=== PATIENT | male | born 1990 | race Caucasian/White ===

== ENCOUNTER 2016-12-10 06:30 | Outpatient (CLI) | payer BC ==
[2016-12-10 09:04] LABS: Anion Gap 16 mmol/L (10-20); BUN (Urea Nitrogen) 22 mg/dL (8.9-20.6); BUN/Creatinine Ratio 15.71; Calc. Creatinine Clearance 0 mL/min (70-130); Calcium 9.6 mg/dL (7.8-10.44); Carbon Dioxide 20 mmol/L (22-29); Chloride 109 mmol/L (98-107); Estimated GFR-MDRD 61
[2016-12-10 09:06] LABS: Hematocrit 43.2 % (42.0-52.0); Mean Platelet Volume 5.8 fL (7.4-10.4); Red Blood Cell (RBC) Count 4.59 mill/uL (4.70-6.10); White Blood Cell (WBC) Count 7.1 thou/uL (4.8-10.8)
[2016-12-10 09:45] LABS: Bilirubin Negative (Negative); Blood, Urine Trace (Negative); Glucose, Urine (Dipstick) Negative (Negative); Ketone, Urine Negative (Negative); Nitrite Negative (Negative); Protein, Urine (Dipstick) Negative (Neg-Trace); Urobilinogen 0.2 mg/dL (0.2-1.0)
[2016-12-10 17:51] LABS: Phosphorus 3.3 mg/dL (2.3-4.7)
== END 2016-12-10 06:31 | disposition home or self-care (01) ==
LOC: BURLAB 06:30
PROVIDERS: ATTEND Internal Medicine Nephrology
DX: I12.9 Hypertensive chronic kidney disease with stage 1 through stage 4 chronic kidney disease, or unspecified chronic kidney disease (principal); N18.4 Chronic kidney disease, stage 4 (severe); R80.9 Proteinuria, unspecified; I02.0 Rheumatic chorea with heart involvement; R56.9 Unspecified convulsions; I27.0 Primary pulmonary hypertension; E78.5 Hyperlipidemia, unspecified; Z94.0 Kidney transplant status
CPT/HCPCS: 36415; 80069; 80197; 81003; 82570; 84156; 84550; 85027

== ENCOUNTER 2016-12-28 06:42 | Outpatient (CLI) | payer BC ==
[2016-12-28 07:10] LABS: Bilirubin Negative (Negative); Blood, Urine Trace (Negative); Glucose, Urine (Dipstick) Negative (Negative); Ketone, Urine Negative (Negative); Nitrite Negative (Negative); Protein, Urine (Dipstick) Negative (Neg-Trace); Urobilinogen 0.2 mg/dL (0.2-1.0)
[2016-12-28 07:19] LABS: Hematocrit 42.2 % (42.0-52.0); Mean Platelet Volume 6.1 fL (7.4-10.4); Red Blood Cell (RBC) Count 4.59 mill/uL (4.70-6.10); White Blood Cell (WBC) Count 6.6 thou/uL (4.8-10.8)
[2016-12-28 08:07] LABS: Anion Gap 14 mmol/L (10-20); BUN (Urea Nitrogen) 20 mg/dL (8.9-20.6); BUN/Creatinine Ratio 15.15; Calc. Creatinine Clearance 0 mL/min (70-130); Calcium 9.2 mg/dL (7.8-10.44); Carbon Dioxide 21 mmol/L (22-29); Chloride 110 mmol/L (98-107); Estimated GFR-MDRD 66
[2016-12-28 19:07] LABS: Phosphorus 3.3 mg/dL (2.3-4.7)
== END 2016-12-28 06:43 | disposition home or self-care (01) ==
LOC: BURLAB 06:42
PROVIDERS: ATTEND Internal Medicine Nephrology
DX: E78.5 Hyperlipidemia, unspecified (principal); I27.0 Primary pulmonary hypertension; I02.0 Rheumatic chorea with heart involvement; R80.9 Proteinuria, unspecified; R56.9 Unspecified convulsions; Z94.0 Kidney transplant status
CPT/HCPCS: 36415; 80069; 80197; 81003; 84550; 85027

== ENCOUNTER 2017-02-14 21:32 | Emergency (ER) | payer BC ==
[2017-02-14] MEDS ORDERED: Adacel (T-DAP) 0.5 ML VIAL ONE (21:41)
[2017-02-14] MEDS ORDERED: Cephalexin 250 MG CAP ONE (22:32)
== END 2017-02-14 22:40 | disposition home or self-care (01) ==
LOC: BURERS 21:32
DX: S61.211A Laceration without foreign body of left index finger without damage to nail, initial encounter (principal); S61.217A Laceration without foreign body of left little finger without damage to nail, initial encounter; S61.213A Laceration without foreign body of left middle finger without damage to nail, initial encounter; S61.215A Laceration without foreign body of left ring finger without damage to nail, initial encounter; I10 Essential (primary) hypertension; Z94.0 Kidney transplant status; Z79.899 Other long term (current) drug therapy; W19.XXXA Unspecified fall, initial encounter
CPT/HCPCS: 12002; 90471; 90715

== ENCOUNTER 2017-02-28 06:40 | Outpatient (CLI) | payer BC ==
[2017-02-28 07:27] LABS: ALT (SGPT) 18 U/L (0-55); AST (SGOT) 19 U/L (5-34); Albumin 4.4 g/dL (3.5-5.0); Alkaline Phosphatase 89 U/L (40-150); Anion Gap 13 mmol/L (10-20); BUN (Urea Nitrogen) 23 mg/dL (8.9-20.6); BUN/Creatinine Ratio 17.69; Bilirubin, Direct 0.2 mg/dL (0.1-0.3); Bilirubin, Total 0.4 mg/dL (0.2-1.2); Calc. Creatinine Clearance 0 mL/min (70-130); Calcium 9.3 mg/dL (7.8-10.44); Carbon Dioxide 22 mmol/L (22-29); Chloride 109 mmol/L (98-107); Estimated GFR-MDRD 67; Glucose 107 mg/dL (70-105); Potassium 3.8 mmol/L (3.5-5.1); Protein, Total 7.1 g/dL (6.0-8.3); Sodium 140 mmol/L (136-145)
[2017-02-28 08:15] LABS: #Basophils 0.1 thou/uL (0.0-0.2); #Eosinphils 0.2 thou/uL (0.0-0.7); #Lymphocytes 2.5 thou/uL (1.20-3.40); #Monocytes 0.9 thou/uL (0.11-0.59); #Neutrophils 3.6 thou/uL (1.40-6.50); %Basophils 1.2 % (0.0-1.0); %Eosinophils 2.5 % (0.0-10.0); %Lymphocytes 35.6 % (21.0-51.0); %Monocytes 12.6 % (0.0-10.0); %Neutrophils 48.1 % (42.0-75.0); Hemoglobin 15.8 g/dL (14.0-18.0); Mean Corpuscular HGB CONC 37.2 g/dL (32.0-36.0); Mean Corpuscular Hemoglobin 34.4 pg (27.0-31.0); Mean Corpuscular Volume 92.4 fl (80.0-94.0); Mean Platelet Volume 5.9 fL (7.4-10.4); PLT Morphology Comment Appears Adequate; Platelet Count 193 thou/uL (130-400); RBC Distribution Width 11.5 % (11.5-14.5); RBC Morphology Normal; Red Blood Cell (RBC) Count 4.53 mill/uL (4.70-6.10); White Blood Cell (WBC) Count 7.1 thou/uL (4.8-10.8)
[2017-02-28 08:18] LABS: MDiff Complete? YES; Manual Diff?? NO
[2017-02-28 08:21] LABS: Bilirubin Negative (Negative); Blood, Urine Trace (Negative); Clarity Clear (Clear); Glucose, Urine (Dipstick) Negative (Negative); Leukocyte Negative (Negative); Nitrite Negative (Negative); Protein, Urine (Dipstick) Negative (Neg-Trace); Specific Gravity, Urine 1.015 (1.005-1.030); Urobilinogen 0.2 mg/dL (0.2-1.0); pH, Urine 5.5 (5.0-9.0)
[2017-02-28 08:34] LABS: RBC/HPF 0-3 HPF (0-3); WBC/HPF 0-3 HPF (0-3)
[2017-02-28 08:35] LABS: Squamous Epithelial 0-3 HPF (0-3)
[2017-02-28 17:28] LABS: Phosphorus 3.5 mg/dL (2.3-4.7)
== END 2017-02-28 06:41 | disposition home or self-care (01) ==
LOC: BURLAB 06:40
PROVIDERS: ATTEND Family Medicine
DX: I12.9 Hypertensive chronic kidney disease with stage 1 through stage 4 chronic kidney disease, or unspecified chronic kidney disease (principal); N18.4 Chronic kidney disease, stage 4 (severe); I02.0 Rheumatic chorea with heart involvement; E78.5 Hyperlipidemia, unspecified; R80.9 Proteinuria, unspecified; I27.0 Primary pulmonary hypertension; Z94.0 Kidney transplant status
CPT/HCPCS: 36415; 80069; 80076; 80197; 81003; 81015; 85025

== ENCOUNTER 2017-03-26 07:52 | Outpatient (CLI) | payer BC ==
[2017-03-26 08:51] LABS: ALT (SGPT) 15 U/L (8-55); AST (SGOT) 19 U/L (5-34); Albumin 4.6 g/dL (3.5-5.0); Alkaline Phosphatase 73 U/L (40-150); Anion Gap 15 mmol/L (10-20); BUN (Urea Nitrogen) 22 mg/dL (8.9-20.6); Bilirubin, Total 0.8 mg/dL (0.2-1.2); Calc. Creatinine Clearance 0 mL/min (70-130); Calcium 9.5 mg/dL (7.8-10.44); Carbon Dioxide 21 mmol/L (22-29); Chloride 109 mmol/L (98-107); Estimated GFR-MDRD 66; Globulin 2.4 g/dL (2.4-3.5); Glucose 89 mg/dL (70-105); Sodium 141 mmol/L (136-145); Uric Acid 7.6 mg/dL (3.5-7.2)
[2017-03-26 09:00] LABS: #Basophils 0.1 thou/uL (0.0-0.2); #Eosinphils 0.1 thou/uL (0.0-0.7); #Monocytes 0.9 thou/uL (0.11-0.59); #Neutrophils 3.6 thou/uL (1.40-6.50); %Basophils 1.3 % (0.0-1.0); %Eosinophils 1.4 % (0.0-10.0); %Lymphocytes 30.2 % (21.0-51.0); %Monocytes 12.7 % (0.0-10.0); %Neutrophils 54.4 % (42.0-75.0); Hemoglobin 15.8 g/dL (14.0-18.0); Mean Corpuscular HGB CONC 36.6 g/dL (32.0-36.0); Mean Corpuscular Hemoglobin 32.4 pg (27.0-31.0); Mean Corpuscular Volume 88.5 fl (80.0-94.0); Mean Platelet Volume 5.9 fL (7.4-10.4); Platelet Count 187 thou/uL (130-400); RBC Distribution Width 11.8 % (11.5-14.5); Red Blood Cell (RBC) Count 4.86 mill/uL (4.70-6.10); White Blood Cell (WBC) Count 6.7 thou/uL (4.8-10.8)
[2017-03-26 09:36] LABS: Bilirubin Negative (Negative); Blood, Urine Trace (Negative); Clarity Clear (Clear); Glucose, Urine (Dipstick) Negative (Negative); Leukocyte Negative (Negative); Nitrite Negative (Negative); Protein, Urine (Dipstick) Negative (Neg-Trace); Specific Gravity, Urine 1.015 (1.005-1.030); Urobilinogen 0.2 mg/dL (0.2-1.0)
[2017-03-26 09:44] LABS: RBC/HPF 0-3 HPF (0-3)
[2017-03-26 09:45] LABS: Bacteria/HPF None Seen HPF (None Seen); Squamous Epithelial 0-3 HPF (0-3); WBC/HPF None Seen HPF (0-3)
[2017-03-26 09:56] LABS: Microalbumin Urine Less than 1.0 mg/dL (0.5-50.0); Microalbumin/Creat Ratio 17.5 mg/g (Less than 30)
== END 2017-03-26 07:53 | disposition home or self-care (01) ==
LOC: BURLAB 07:52
PROVIDERS: ATTEND Internal Medicine Nephrology
DX: I12.9 Hypertensive chronic kidney disease with stage 1 through stage 4 chronic kidney disease, or unspecified chronic kidney disease (principal); N18.9 Chronic kidney disease, unspecified; D63.1 Anemia in chronic kidney disease; N25.0 Renal osteodystrophy; Z94.0 Kidney transplant status
CPT/HCPCS: 36415; 80053; 80197; 81001; 82043; 83735; 83970; 84100; 84550; 85025; 87799

== ENCOUNTER 2017-04-24 06:14 | Outpatient (CLI) | payer BC | END 2017-04-24 06:15 | disposition home or self-care (01) | LOC: BURLAB 06:14 | PROVIDERS: ATTEND Internal Medicine Nephrology | DX: N25.0 Renal osteodystrophy (principal); N18.9 Chronic kidney disease, unspecified; D63.1 Anemia in chronic kidney disease; I10 Essential (primary) hypertension; Z94.0 Kidney transplant status | CPT/HCPCS: 36415; 80197; 87799 ==

== ENCOUNTER 2017-05-24 06:41 | Outpatient (CLI) | payer BC ==
[2017-05-24 08:01] LABS: Hemoglobin 16.3 g/dL (14.0-18.0); Mean Corpuscular HGB CONC 35.6 g/dL (32.0-36.0); Mean Corpuscular Volume 87.2 fl (80.0-94.0); Mean Platelet Volume 6.1 fL (7.4-10.4); Platelet Count 218 thou/uL (130-400); RBC Distribution Width 12.3 % (11.5-14.5); Red Blood Cell (RBC) Count 5.27 mill/uL (4.70-6.10)
[2017-05-24 08:20] LABS: Albumin 4.5 g/dL (3.5-5.0); Anion Gap 17 mmol/L (10-20); BUN (Urea Nitrogen) 26 mg/dL (8.9-20.6); BUN/Creatinine Ratio 19.26; Calc. Creatinine Clearance 0 mL/min (70-130); Calcium 9.6 mg/dL (7.8-10.44); Carbon Dioxide 22 mmol/L (22-29); Chloride 107 mmol/L (98-107); Estimated GFR-MDRD 64; Glucose 85 mg/dL (70-105); Potassium 4.3 mmol/L (3.5-5.1); Sodium 142 mmol/L (136-145); Uric Acid 7.3 mg/dL (3.5-7.2)
[2017-05-24 17:40] LABS: Phosphorus 3.7 mg/dL (2.3-4.7)
== END 2017-05-24 06:42 | disposition home or self-care (01) ==
LOC: BURLAB 06:41
PROVIDERS: ATTEND Internal Medicine Nephrology
DX: E78.5 Hyperlipidemia, unspecified (principal); I12.9 Hypertensive chronic kidney disease with stage 1 through stage 4 chronic kidney disease, or unspecified chronic kidney disease; N18.4 Chronic kidney disease, stage 4 (severe); I02.0 Rheumatic chorea with heart involvement; I27.0 Primary pulmonary hypertension; R80.9 Proteinuria, unspecified; R56.9 Unspecified convulsions; L70.9 Acne, unspecified; Z94.0 Kidney transplant status
CPT/HCPCS: 36415; 80069; 80197; 84550; 85027

== ENCOUNTER 2017-07-30 06:25 | Outpatient (CLI) | payer BC ==
[2017-07-30 07:08] LABS: Hemoglobin 15.3 g/dL (14.0-18.0); Mean Corpuscular HGB CONC 36.2 g/dL (32.0-36.0); Mean Corpuscular Hemoglobin 31.7 pg (27.0-31.0); Mean Corpuscular Volume 87.7 fl (80.0-94.0); Mean Platelet Volume 5.8 fL (7.4-10.4); Platelet Count 209 thou/uL (130-400); RBC Distribution Width 12.1 % (11.5-14.5); Red Blood Cell (RBC) Count 4.82 mill/uL (4.70-6.10); White Blood Cell (WBC) Count 6.6 thou/uL (4.8-10.8)
[2017-07-30 07:10] LABS: Bilirubin Negative (Negative); Blood, Urine Trace (Negative); Clarity Clear (Clear); Glucose, Urine (Dipstick) Negative (Negative); Leukocyte Negative (Negative); Nitrite Negative (Negative); Protein, Urine (Dipstick) Negative (Neg-Trace); Urobilinogen 0.2 mg/dL (0.2-1.0)
[2017-07-30 07:46] LABS: ALT (SGPT) 16 U/L (8-55); AST (SGOT) 17 U/L (5-34); Albumin 4.5 g/dL (3.5-5.0); Alkaline Phosphatase 90 U/L (40-150); Anion Gap 16 mmol/L (10-20); BUN (Urea Nitrogen) 18 mg/dL (8.9-20.6); BUN/Creatinine Ratio 14.29; Bilirubin, Direct 0.2 mg/dL (0.1-0.3); Bilirubin, Total 0.4 mg/dL (0.2-1.2); Calc. Creatinine Clearance 0 mL/min (70-130); Calcium 9.7 mg/dL (7.8-10.44); Carbon Dioxide 22 mmol/L (22-29); Cardiac Risk 3.6 (Less than 4.5); Chloride 109 mmol/L (98-107); Cholesterol 184 mg/dl (< 200 Desired); Estimated GFR-MDRD 69; Glucose 101 mg/dL (70-105); HDL Cholesterol 51 mg/dL (>60 Neg Risk); LDL Cholesterol, Calculated 119 mg/dL; Potassium 3.9 mmol/L (3.5-5.1); Protein, Total 7.3 g/dL (6.0-8.3); Sodium 143 mmol/L (136-145); Triglycerides 72 mg/dL (Less than 150); Uric Acid 6.7 mg/dL (3.5-7.2)
[2017-07-30 17:29] LABS: Phosphorus 3.8 mg/dL (2.3-4.7)
[2017-07-30 17:43] LABS: Creatinine, Urine 43.07 mg/dL (63-166); Protein, Urine Random Quant Less than 10 mg/dL
[2017-08-02 16:13] LABS: Tacrolimus 7.6 ng/mL (2.0-20.0)
== END 2017-07-30 06:26 | disposition home or self-care (01) ==
LOC: BURLAB 06:25
PROVIDERS: ATTEND Internal Medicine Nephrology
DX: I12.0 Hypertensive chronic kidney disease with stage 5 chronic kidney disease or end stage renal disease (principal); N18.5 Chronic kidney disease, stage 5; Z94.0 Kidney transplant status
CPT/HCPCS: 36415; 80061; 80069; 80076; 80197; 81003; 82570; 84156; 84550; 85027

== ENCOUNTER 2019-03-28 07:14 | Emergency (ER) | payer BC ==
[2019-03-28] MEDS ORDERED: Ondansetron PF 4 MG/2 ML Vial ONE ×2 (07:25→07:44)
[2019-03-28] MEDS ORDERED: Famotidine In NaCl 20 mg/50 ml Premix Bag ONE (07:44)
[2019-03-28 07:58] LABS: #Lymphocytes 1.1 thou/uL (1.20-3.40); #Monocytes 0.5 thou/uL (0.11-0.59); #Neutrophils 6.2 thou/uL (1.40-6.50); %Basophils 0.4 % (0.0-1.0); %Eosinophils 0.5 % (0.0-10.0); %Lymphocytes 13.7 % (21.0-51.0); %Monocytes 5.9 % (0.0-10.0); %Neutrophils 79.5 % (42.0-75.0); Hemoglobin 17.3 g/dL (14.0-18.0); Mean Corpuscular HGB CONC 33.1 g/dL (32.0-36.0); Mean Corpuscular Hemoglobin 29.1 pg (27.0-31.0); Mean Corpuscular Volume 88.1 fL (78.0-98.0); Mean Platelet Volume 5.5 fL (7.4-10.4); Platelet Count 195 thou/uL (130-400); RBC Distribution Width 12.4 % (11.5-14.5); Red Blood Cell (RBC) Count 5.93 mill/uL (4.70-6.10); White Blood Cell (WBC) Count 7.8 thou/uL (4.8-10.8)
[2019-03-28 08:04] LABS: ALT (SGPT) 25 U/L (8-55); AST (SGOT) 24 U/L (5-34); Albumin 5.1 g/dL (3.5-5.0); Alkaline Phosphatase 85 U/L (40-150); Anion Gap 20 mmol/L (10-20); BUN (Urea Nitrogen) 23 mg/dL (8.9-20.6); Bilirubin, Total 0.8 mg/dL (0.2-1.2); Calc. Creatinine Clearance 0 mL/min (70-130); Calcium 10.7 mg/dL (7.8-10.44); Carbon Dioxide 23 mmol/L (22-29); Chloride 103 mmol/L (98-107); Estimated GFR-MDRD 54; Globulin 3.2 g/dL (2.4-3.5); Glucose 151 mg/dL (70-105); Lipase 8 U/L (8-78); Potassium 4.4 mmol/L (3.5-5.1); Protein, Total 8.3 g/dL (6.0-8.3); Sodium 142 mmol/L (136-145)
== END 2019-03-28 08:20 | disposition home or self-care (01) ==
LOC: BURERS 07:14
DX: R11.2 Nausea with vomiting, unspecified (principal); R19.7 Diarrhea, unspecified; I10 Essential (primary) hypertension
CPT/HCPCS: 80053; 83690; 85025; 96365; 96375; J2405